=== PATIENT | female | born 1945 ===

== ENCOUNTER 2018-12-24 12:31 | Outpatient (CLI) | payer OTHER ==
[~2018-12-24 12:31] MED LIST: ALPHAGAN P5 M2 OP; ASPIRIN81 M1 PO; AZOR 10-40 MG1 EACH PO; BETIMOL5 M1 OTIC; CALCIUM + D SO1 EACH PO; CIDAFLEX TABLE1 EACH PO; CRITIC-AID CLEAR4 GM; FENOFIBRATE160 MG PO; FISH OIL 1,0001 EAC4 PO; IRBESARTAN-HCT1 EAC1 PO; MAGNESIUM SULFATE PO; NAPROXEN250 MG PO; PRESERVISION L1 EACH PO; PROTONIX40 M1 PO; REFRESH OPTIVE10 ML OPHT; SERTRALINE HCL100 MG PO; VITA-BEE WITH1 EACH; [UNRECOGNIZED DRUG - OTHER] PO; [UNRECOGNIZED DRUG - OTHER] PO
== END 2018-12-24 12:34 | disposition home or self-care (01) ==
LOC: MAMO-SONO 12:31
DX: R92.0 Mammographic microcalcification found on diagnostic imaging of breast (principal)

== ENCOUNTER → 2018-12-28 | Day surgery (SDC) | payer OTHER | END | disposition home or self-care (01) | LOC: CIR.AMB | PROVIDERS: Plastic Surgery; Surgery | PROC: 0HBV0ZZ Excision of Bilateral Breast, Open Approach (ICD-10-PCS; 2018-12-28) | PROC: 0HBT0ZZ Excision of Right Breast, Open Approach (ICD-10-PCS; principal; 2018-12-28 07:00) | PROC: 07B50ZZ Excision of Right Axillary Lymphatic, Open Approach (ICD-10-PCS; 2018-12-28 07:00) | DX: C50.211 Malignant neoplasm of upper-inner quadrant of right female breast (principal); N62 Hypertrophy of breast; C77.3 Secondary and unspecified malignant neoplasm of axilla and upper limb lymph nodes ==